=== PATIENT | female | born 1995 | race Caucasian/White ===

== ENCOUNTER 2018-06-08 23:25 | Emergency (ER) | payer BC ==
[2018-06-09] MEDS ORDERED: oxyCODONE/Acetamin 5/325 MG* TAB PO ONE (00:08)
--- NOTE | 2018-06-09 00:19 | ED ---
Upper Extremity Pain - HPI Summary HPI Summary: Patient is a 23 y/o F w/ c/o possible dislocated right shoulder. She states that this evening she was holding a cat during a fire alarm. The cat attempted to jump out of her arms, the patient tried to hold onto it and reports that her shoulder popped out, popped back in, and then popped out again. Patient can move her right shoulder but reports it is painful. She notes that she had dislocated this shoulder previously years ago. On triage, pain is rated 7/10, movement is noted to aggravate pain, nothing is noted to alleviate Sx. Patient took 200mg ibuprofen [employer]. Home medications and allergies are reviewed. - History of Current Complaint Chief Complaint: EDExtremityUpper Stated Complaint: RT SHOULDER INJURY Time Seen by Provider: 06/08/18 23:34 Hx Obtained From: Patient Hx Last Menstrual Period: last week Mechanism Of Injury: Other - cat tried to jump out of her arms Onset/Duration: Started Hours Ago, Still Present Timing: Constant Severity Currently: Severe - 7/10 Pain Location: Shoulder - right Aggravating Factor(s): Movement Alleviating Factor(s): Nothing Associated Signs & Symptoms: Positive: Other - right shoulder pain - Allergies/Home Medications Allergies/Adverse Reactions: Allergies Allergy/AdvReac Type Severity Reaction Status Date / Time amoxicillin [From Augmentin] Allergy Unknown Verified 06/08/18 23:32 Reaction Details clavulanic acid Allergy Unknown Verified 06/08/18 23:32 [From Augmentin] Reaction Details Penicillins Allergy Unknown Verified 06/08/18 23:32 Reaction Details Home Medications: Home Medications Ibuprofen [Advil] 200 mg PO Q6HR PRN 06/08/18 [History Confirmed 06/08/18] Norethindrone-Ethinyl Estrad [Dasetta ] 1 tab PO DAILY 06/08/18 [History Confirmed 06/08/18] PMH/Surg Hx/FS Hx/Imm Hx Cardiovascular History: Denies: Hx Coronary Artery Disease, Hx Deep Vein Thrombosis Respiratory History: Denies: Hx Chronic Obstructive Pulmonary Disease (COPD), Hx Cystic Fibrosis GI History: Reports: Hx Irritable Bowel - Immunization History Date of Tetanus Vaccine: utd Date of Influenza Vaccine: none Infectious Disease History: No Infectious Disease History: Denies: Traveled Outside the [place] in Last 30 Days - Family History Known Family History: Positive: Other - negative for Crohn's Negative: Hypertension, Respiratory Disease - no blood clot in lung, Seizure Disorder - Social History Alcohol Use: Occasionally Substance Use Type: Reports: None Smoking Status (MU): Never Smoked Tobacco Review of Systems Negative: Fever - on vitals, temp is 98.3 F Positive: Other - right shoulder pain, possible dislocation All Other Systems Reviewed And Are Negative: Yes Physical Exam - Summary Physical Exam Summary: VITAL SIGNS: Reviewed. GENERAL: Patient is a well-developed and nourished female who is lying comfortable in the stretcher. Patient is not in any acute respiratory distress. HEAD AND FACE: No signs of trauma. No ecchymosis, hematomas or skull depressions. No sinus tenderness. EYES: PERRLA, EOMI x 2, No injected conjunctiva, no nystagmus. EARS: Hearing grossly intact. Ear canals and tympanic membranes are within normal limits. MOUTH: Oropharynx within normal limits. NECK: Supple, trachea is midline, no adenopathy, no JVD, no carotid bruit, no c- spine tenderness, neck with full ROM. CHEST: Symmetric, no tenderness at palpation LUNGS: Clear to auscultation bilaterally. No wheezing or crackles. CVS: Regular rate and rhythm, S1 and S2 present, no murmurs or gallops appreciated. ABDOMEN: Soft, non-tender. No signs of distention. No rebound no guarding, and no masses palpated. Bowel sounds are normal. EXTREMITIES: No edema, no cyanosis or clubbing. Limited ROM at RUE secondary to right shoulder pain. All else normal. NEURO: Alert and oriented x 3. No acute neurological deficits. Speech is normal and follows commands. SKIN: Dry and warm Triage Information Reviewed: Yes Vital Signs On Initial Exam: Initial Vitals Temp Pulse Resp BP Pulse Ox 98.3 F 80 16 121/83 97 06/08/18 23:26 06/08/18 23:26 06/08/18 23:26 06/08/18 23:26 06/08/18 23:26 Vital Signs Reviewed: Yes Diagnostics - Vital Signs Vital Signs Temp Pulse Resp BP Pulse Ox 06/08/18 23:26 98.3 F 80 16 121/83 97 - Laboratory Lab Statement: Any lab studies that have been ordered have been reviewed, and results considered in the medical decision making process. - Radiology right shoulder x-ray Xray Interpretation: Positive (See Comments) Radiology Interpretation Completed By: ED Physician - subluxation of the femoral head in relation to the glenoid cavity; pending official report. Re-Evaluation - Re-Evaluation First Eval Re-Evaluation Time: 00:20 Change: Improved Comment: Discussed results of x-ray with patient. She was given a script for pain medication as well as a sling for her arm. She was instructed to follow up with orthopedist tomorrow. Patient is able to touch her left shoulder with her right hand. Course/Dx - Course Assessment/Plan: Patient is a 23 y/o F w/ c/o possible dislocated right shoulder. She states that this evening she was holding a cat during a fire alarm. The cat attempted to jump out of her arms, the patient tried to hold onto it and reports that her shoulder popped out, popped back in, and then popped out again. Patient can move her right shoulder but reports it is painful. She notes that she had dislocated this shoulder previously years ago. On triage, pain is rated 7/10, movement is noted to aggravate pain, nothing is noted to alleviate Sx. Patient took 200mg ibuprofen [employer]. Physical exam showed Limited ROM at RUE secondary to right shoulder pain. All else normal. During ED course, patient was given Percocet 5/325 1 tab PO ONCE. Right shoulder x- ray showed subluxation of the femoral head in relation to the glenoid cavity; pending official report. No dislocation, only subluxation, possible muscle injury. Discussed results of x-ray with patient. She was given a script for pain medication as well as a sling for her arm. She was instructed to follow up with orthopedist tomorrow. Patient is able to touch her left shoulder with her right hand. Patient understands and agrees with follow up plan. Dx of right shoulder subluxation. - Diagnoses Provider Diagnoses: Shoulder subluxation, right Discharge - Sign-Out/Discharge Documenting (check all that apply): Patient Departure - discharge - Discharge Plan Condition: Stable Disposition: HOME Patient Education Materials: Shoulder Pain (ED) Referrals: Christine Sosa MD [Medical Doctor] - 1 Day Additional Instructions: TAKE PERCOCET, 1 TABLET EVERY SIX HOURS, NEEDED FOR PAIN. MAKE SURE TO WEAR YOUR SLING. RETURN TO THE EMERGENCY DEPARTMENT FOR CHANGING OR WORSENING SYMPTOMS. FOLLOW UP WITH ORTHOPEDIC DOCTOR TOMORROW. - Attestation Statements Document Initiated by Scribe: Yes Documenting Scribe: Fritz Grover Provider For Whom Scribe is Documenting (Include Credential): Niki Carson MD Scribe Attestation: IFritz , scribed for Niki Carson MD on 06/09/18 at 0106.
[2018-06-09 01:00] VITALS: BP 127/84
--- NOTE | 2018-06-09 07:52 | RAD ---
HISTORY: pain, right shoulder dislocation COMPARISONS: None VIEWS: 4 , Frontal internal rotation, external rotation, outlet, and axillary views of the right shoulder FINDINGS: BONE DENSITY: Normal. BONES: There is no displaced fracture. JOINTS: There is no arthropathy. ALIGNMENT: There is mild inferior subluxation of the humerus with respect to the glenoid SOFT TISSUES: Unremarkable. OTHER FINDINGS: None. IMPRESSION: NO ACUTE OSSEOUS INJURY. THERE IS MILD INFERIOR SUBLUXATION OF THE HUMERUS WITH RESPECT TO THE GLENOID WHICH MAY INDICATE THE PRESENCE OF A JOINT EFFUSION/HEMARTHROSIS. IF SYMPTOMS PERSIST, RECOMMEND REPEAT IMAGING. R0
== END 2018-06-09 00:59 | disposition home or self-care (01) ==
LOC: ED 23:25
DX: S43.001A Unspecified subluxation of right shoulder joint, initial encounter (principal); M25.511 Pain in right shoulder; Z88.0 Allergy status to penicillin; X50.9XXA Other and unspecified overexertion or strenuous movements or postures, initial encounter; Y92.9 Unspecified place or not applicable
CPT/HCPCS: 99282; A9270-GY

== ENCOUNTER 2019-01-14 17:14 | Emergency (ER) | payer BC ==
--- NOTE | 2019-01-14 19:50 | ED ---
GI/ HPI - HPI Summary HPI Summary: Pt is a 23 y/o F presenting to the ED with a chief complaint of GI issues. She was dxed with IBS in 2016, and the sx are usually triggered by stress. On , she was having bowel movements 4-5x a day and it was liquid, with associated nausea that she took Pepto-Bismol for. She noticed that the stool was getting progressively darker and more watery as the days went on. Today, she called her doctor at [facility], who recommended she come straight here. She reports watery diarrhea, abd cramping, and the constant urge to have a bowel movement. She denies fever, chills, nausea, and vomiting. She also nots she had a concussion 2wks ago that she took a lot of IBU for, and has had a GI bleed in the past. - History of Current Complaint Chief Complaint: EDGIBleed Time Seen by Provider: 01/14/19 19:34 Stated Complaint: BLACK STOOL PER PT Hx Obtained From: Patient Hx Last Menstrual Period: last week Onset/Duration: Started Days Ago, Still Present Timing: Constant, Lasting Days Severity: Mild Current Severity: Moderate Pain Intensity: 0 Location of Pain: Suprapubic Pain Characteristics: Cramping Associated Signs and Symptoms: Positive: Diarrhea, Abdominal Pain. Negative: Nausea, Vomiting, Fever, Chills Aggravating Factor(s): Nothing Alleviating Factor(s): Nothing - Allergy/Home Medications Allergies/Adverse Reactions: Allergies Allergy/AdvReac Type Severity Reaction Status Date / Time amoxicillin [From Augmentin] Allergy Unknown Verified 01/14/19 17:23 Reaction Details clavulanic acid Allergy Unknown Verified 01/14/19 17:23 [From Augmentin] Reaction Details Penicillins Allergy Unknown Verified 01/14/19 17:23 Reaction Details Home Medications: Home Medications Bismuth Subsalicylate [Pepto-Bismol] 30 ml PO Q8H PRN 01/14/19 [History Confirmed 01/14/19] PMH/Surg Hx/FS Hx/Imm Hx Previously Healthy: Yes Cardiovascular History: Denies: Hx Coronary Artery Disease, Hx Deep Vein Thrombosis Respiratory History: Denies: Hx Chronic Obstructive Pulmonary Disease (COPD), Hx Cystic Fibrosis GI History: Reports: Hx Irritable Bowel - Immunization History Date of Tetanus Vaccine: utd Date of Influenza Vaccine: none Infectious Disease History: No Infectious Disease History: Denies: Traveled Outside the [place] in Last 30 Days - Family History Known Family History: Positive: Other - negative for Crohn's Negative: Hypertension, Respiratory Disease - no blood clot in lung, Seizure Disorder - Social History Occupation: Student Lives: Dormitory/Roommates Alcohol Use: Occasionally Hx Substance Use: No Substance Use Type: Reports: None Hx Tobacco Use: No Smoking Status (MU): Never Smoked Tobacco Review of Systems Negative: Fever, Chills Positive: Abdominal Pain, Diarrhea. Negative: Vomiting, Nausea All Other Systems Reviewed And Are Negative: Yes Physical Exam - Summary Physical Exam Summary: GENERAL: Patient is a well-developed and nourished female who is lying comfortable in the stretcher. Patient is not in any acute respiratory distress. HEAD AND FACE: Normocephalic EYES: PERRLA, EOMI x 2. EARS: Hearing grossly intact. MOUTH: Oropharynx within normal limits. NECK: Supple, trachea is midline, no adenopathy, no JVD, no carotid bruit. CHEST: Symmetric, no tenderness at palpation LUNGS: Clear to auscultation bilaterally. No wheezing or crackles. CVS: Regular rate and rhythm, S1 and S2 present, no murmurs or gallops appreciated. ABDOMEN: Soft, non-tender. Bowel sounds are normal. No abnormal abdominal pulsations. EXTREMITIES: Full ROM in all major joints, no edema, no cyanosis or clubbing. NEURO: Alert and oriented x 3. No acute neurological deficits. Speech is normal and follows commands. SKIN: Dry and warm Rectal: Stool is very dark brown but not quite melena. Rectum is normal. Triage Information Reviewed: Yes Vital Signs On Initial Exam: Initial Vitals Temp Pulse Resp BP Pulse Ox 98.6 F 87 16 140/83 98 01/14/19 17:18 01/14/19 17:18 01/14/19 17:18 01/14/19 17:18 01/14/19 17:18 Vital Signs Reviewed: Yes Diagnostics - Vital Signs Vital Signs Temp Pulse Resp BP Pulse Ox 01/14/19 17:18 98.6 F 87 16 140/83 98 - Laboratory Result Diagrams: 01/14/19 19:50 01/14/19 19:50 Lab Statement: Any lab studies that have been ordered have been reviewed, and results considered in the medical decision making process. Re-Evaluation - Re-Evaluation 1st re-eval Re-Evaluation Time: 20:29 Change: Improved Comment: Pt reports no pain and is agreeable to going home. GIGU Course/Dx - Course Course Of Treatment: Pt is a 23 y/o F presenting to the ED with a chief complaint of GI issues. She reports watery diarrhea, abd cramping, and the constant urge to have a bowel movement. She denies fever, chills, nausea, and vomiting. She also nots she had a concussion 2wks ago that she took a lot of IBU for, and has had a GI bleed in the past. The pt's stool occult test is negative. She will be d/c'ed home with a dx of dark stool. I told her that I believe her stool was darkened d/t the use of Pepto Bismol. I discussed results with patient, and she reports feeling better. She is hemodynamically stable and safe for discharge. Strict return precautions given and she will otherwise follow up with her PCP. - Diagnoses Provider Diagnoses: Dark stools Discharge - Sign-Out/Discharge Documenting (check all that apply): Patient Departure Patient Received Moderate/Deep Sedation with Procedure: No - Discharge Plan Condition: Stable Disposition: HOME Patient Education Materials: Irritable Bowel Syndrome (ED) Referrals: [facility] @ [Outside] Additional Instructions: Please follow up with your primary care provider within the next 1-3 days. Return to the emergency department with any new or worsening symptoms. - Billing Disposition and Condition Condition: STABLE Disposition: Home - Attestation Statements Document Initiated by Kimmy: Yes Documenting Scribe: Antionette Washington Provider For Whom Kimmy is Documenting (Include Credential): Marcela Cannon MD. Scribe Attestation: Antionette Sheldon, scribed for Marcela Cannon MD. on 01/14/19 at 2105. Scribe Documentation Reviewed: Yes Provider Attestation: The documentation as recorded by the scribe, Antionette Washington accurately reflects the service I personally performed and the decisions made by me, Jose A Cannon MD. Status of Scribe Document: Viewed
[2019-01-14 19:57] LABS: ABS Lymphocytes 1.8 10^3/ul (1.0-4.8); ABS Monocytes 0.3 10^3/ul (0-0.8); ABS Neutrophils 5.6 10^3/ul (1.5-7.7); Eosinophil % 0.6 %; Hematocrit 42 % (35-47); Hemoglobin 14.4 g/dL (12.0-16.0); Lymphocyte % 23.5 %; Mean Corpuscular HGB Conc 35 g/dL (31-36); Mean Corpuscular Hemoglobin 31 pg (27-31); Mean Corpuscular Volume 89 fL (80-97); Mean Platelet Volume 7.3 fL (7.4-10.4); Nucleated Red Blood Cells % 0.1; Platelet Count 357 10^3/uL (150-450); Red Blood Count 4.65 10^6 /uL (3.70-4.87); Red Cell Distribution Width 13 % (10.5-15); White Blood Count 7.8 10^3/uL (3.5-10.8)
[2019-01-14 20:07] LABS: Activated Partial Thrombo Time 30.1 seconds (26.0-36.3); INR 0.99 (0.82-1.09)
[2019-01-14 20:14] LABS: ALT 14 U/L (7-52); AST 19 U/L (13-39); Albumin 4.6 g/dL (3.2-5.2); Albumin/Globulin Ratio 1.6 (1-3); Alkaline Phosphatase 66 U/L (34-104); Anion Gap 7 mmol/L (2-11); BUN/Creatinine Ratio 11.4 (8-20); Blood Urea Nitrogen 9 mg/dL (6-24); CO2 Carbon Dioxide 25 mmol/L (22-32); Chloride 106 mmol/L (101-111); EGFR African American 111.2 (>60); EGFR Non-African American 91.9 (>60); Globulin 2.8 g/dL (2-4); Glucose 97 mg/dL (70-100); Potassium 4.2 mmol/L (3.5-5.0); Sodium 138 mmol/L (135-145); Total Protein 7.4 g/dL (6.4-8.9)
[2019-01-14 20:20] LABS: HCG Pregnancy < 0.60 mIU/mL
[2019-01-14 20:37] LABS: Urine Appearance Cloudy; Urine Bacteria 1+ (Absent); Urine Bilirubin Negative (Negative); Urine Blood 1+ (Negative); Urine Color Yellow; Urine Glucose Negative (Negative); Urine Ketones Negative (Negative); Urine Nitrite Negative (Negative); Urine Protein Negative (Negative); Urine Red Blood Cell Trace(0-2/hpf) (Absent); Urine Specific Gravity 1.004 (1.010-1.030); Urine Squamous Epithelial Cell Present (Absent); Urine Urobilinogen Negative (Negative); Urine White Blood Cell Trace(0-5/hpf) (Absent)
[2019-01-14 21:10] VITALS: BP 122/73
== END 2019-01-14 21:00 | disposition home or self-care (01) ==
LOC: ED 17:14
DX: R19.5 Other fecal abnormalities (principal); K58.0 Irritable bowel syndrome with diarrhea; Z88.3 Allergy status to other anti-infective agents; Z88.0 Allergy status to penicillin
CPT/HCPCS: 36415; 80053; 81003; 81015; 82270; 84702; 85025; 85610; 85730; 86850; 86900; 86901; 87086; 99282